=== PATIENT | male | born 1965 | race Caucasian/White ===

== ENCOUNTER 2022-09-17 05:35 | Outpatient (CLI) | payer BC ==
[~2022-09-17] VITALS: Ht 175.3 cm; Wt 88.0 kg
== END 2022-09-17 10:11 | disposition home or self-care (01) ==
LOC: PREOP 05:35
PROVIDERS: ATTEND Surgery
DX: Z01.818 Encounter for other preprocedural examination (principal)

== ENCOUNTER 2022-09-25 11:13 | Day surgery (SDC) | payer BC ==
[~2022-09-25] VITALS: Ht 175 cm; Wt 88.0 kg
[2022-09-25] MEDS ORDERED: LACTATED RINGERS 1,000 ML IV STA (11:14)
[2022-09-25] MEDS ORDERED: LIDOCAINE JELLY 2% 6 ML SYRINGE MM PRN (11:15)
[2022-09-25] MEDS ORDERED: LACTATED RINGERS 1,000 ML IV ONE (11:39)
[2022-09-25 11:40] VITALS: BP 143/84
--- NOTE | 2022-09-25 11:49 | Progress Note-Pre Operative ---
Pre-Operative Progress Note Date of Available H&P: Sep 25, 2022 Date H&P Reviewed: Sep 25, 2022 Time H&P Reviewed: 11:40 History & Physical: No changes noted Pre-Operative Diagnosis: screening o NGA GENAO MD Sep 25, 2022 11:49
--- NOTE | 2022-09-25 11:50 | Discharge Inst-Surgical ---
D/C Lap Instructions-BIRGIT Follow Up Activity as tolerated High Fiber Diet 25g or more per day Avoid Alcohol, Caffeine, Spicy [place] and Acid foods. Drink 64 fluid oz or more of fluids per day. Symptoms to Report: Fever over 101 degree F, Nausea/Vomiting If any problems/questions: Contact your physician or go to Emergency Room NGA GENAO MD Sep 25, 2022 11:50
[2022-09-25] MEDS ORDERED: ONDANSETRON 4 MG (ZOFRAN) ORAL DISSOLVE TAB PO PRN (12:00)
[2022-09-25] MEDS ORDERED: ONDANSETRON 4 MG/2 ML (SDV) Z0FRAN IVP PRN (12:00)
[2022-09-25] MEDS ORDERED: PROPOFOL INJECTION 50 ML IV ONE (12:09)
[2022-09-25] MEDS ORDERED: LIDOCAINE JELLY 2% 6 ML SYRINGE ONE (12:10)
[2022-09-25 12:30] VITALS: BP 99/70
--- NOTE | 2022-09-25 12:32 | Anesthesia-General Post-Op ---
MAC Patient Condition Mental Status/LOC: Same as Preop Cardiovascular: Satisfactory Nausea/Vomiting: Absent Respiratory: Satisfactory Pain: Controlled Complications: Absent Post Op Complications Complications None Follow Up Care/Instructions Patient Instructions None needed. Anesthesiology Discharge Order Discharge Order Patient is doing well, no complaints, stable vital signs, no apparent adverse anesthesia problems. No complications reported per nursing. YARON SILVA CRNA Sep 25, 2022 12:32
[2022-09-25 12:35] VITALS: BP 113/66
[2022-09-25 12:40] VITALS: BP 113/66
[2022-09-25 12:55] VITALS: BP 113/66
--- NOTE | 2022-09-25 14:00 | Progress Note-Post Operative ---
Post-Operative Progess Note Surgeon (s)/Professor Of Geography (s) Surgeon NGA GENAO MD Professor Of Geography: none Pre-Operative Diagnosis screening colo Post-Operative Diagnosis mild chronic stage 2 ext hemorrhoids, small HP polyp(2mm) Procedure & Operative Findings Date of Procedure 09/25/22 Procedure Performed/Findings colonoscopy with bx. Anesthesia Type get Estimated Blood Loss Estimated blood loss (mL): minimal Specimens/Packing Specimens Removed appendix NGA GENAO MD Sep 25, 2022 14:00
--- NOTE | 2022-09-25 19:51 | OPERATIVE REPORT ---
DATE OF SERVICE: 09/25/2022 ATTENDING PRIMARY: Dr. Shane Ferguson. PREOPERATIVE DIAGNOSIS: Screening colonoscopy. POSTOPERATIVE DIAGNOSES: Mild chronic stage II, external, internal hemorrhoids, small hyperplastic polyp of the rectum. PROCEDURE: Colonoscopy with polypectomy with hot biopsy forceps. SURGEON: Nga Genao M.D. ANESTHESIA: Monitored anesthesia care. ESTIMATED BLOOD LOSS: Minimal. FINDINGS:. Mild chronic stage II, external, internal hemorrhoids, small hyperplastic polyp of the rectum. DISPOSITION: The patient tolerated the procedure well. INDICATIONS: The patient is a 57-year-old male referred over to us for screening colonoscopy. He has not had a colonoscopy up to this point in his life. He states that he is doing well. Does not report any major issues with diarrhea, no constipation as well as no red blood per rectum, nor any dark tarry stools. He also does not report any family history of colon cancer. DESCRIPTION OF PROCEDURE: The patient was brought to the endoscopy suite and laid in the left lateral decubitus position. After adequate IV pain and sedative medications and monitored anesthesia care, digital rectal examination was performed which revealed chronic stage II, external, internal hemorrhoids, not actively edematous nor inflamed and no bleeding. Normal sphincter tone was felt and there were no palpable masses. Prostate gland was palpable and appeared normal. The endoscope was then intubated into the anus, rectum and gently insufflated. The endoscope was then advanced through the valves of [place] of the rectum with a small hyperplastic polyp approximately 2 mm in size identified. This was biopsied and destroyed using forceps and electrocautery with visualization and good hemostasis. The endoscope was then advanced through the sigmoid colon where no diverticulosis identified. The endoscope was then advanced through the remainder of the descending, transverse and ascending colon to the cecum, which were normal. No other lesions identified. The endoscope was then slowly withdrawn with again a second look and suctioning all residual air with no additional findings. The patient tolerated the procedure well. We will recommend continued medical management with a high-fiber diet with addition of fiber supplement, which should equal to exceed 30 grams daily as well as significant amounts of water to promote soft consistency stools on a daily basis. If he is asymptomatic, he does not need another colonoscopy for another 10 years. Job ID: [id number] DocumentID: [id number] Dictated Date: 09/25/2022 12:32:31 Operator Maintainer Date: 09/25/2022 19:49:00 Dictated By: NGA GENAO MD MTDD
== END 2022-09-25 13:03 | disposition home or self-care (01) ==
LOC: ENDO 11:13
PROVIDERS: ATTEND Surgery
DX: Z12.11 Encounter for screening for malignant neoplasm of colon (principal); K62.1 Rectal polyp; K64.1 Second degree hemorrhoids; K64.4 Residual hemorrhoidal skin tags; F17.210 Nicotine dependence, cigarettes, uncomplicated; E66.9 Obesity, unspecified; Z68.28 Body mass index [BMI] 28.0-28.9, adult; Z28.310 Unvaccinated for COVID-19